=== PATIENT | male | born 1940 | race Caucasian/White ===

== ENCOUNTER 2023-07-10 14:49 | Inpatient (IN) | payer MEDICARE, OTHER, SELFPAY ==
[2023-07-10 15:30] VITALS: BP 167/74; PULSE 74; RESP 16; TEMP 36.1; O2SAT 97; BMI 22.8
--- NOTE | 2023-07-10 15:35 | DI.CT.S_ITS ---
PROCEDURE: CT PEL WO CON INDICATIONS: fall 06/21 unable to walk due to pain TECHNIQUE: Noncontrast 3 mm axial sections acquired through the bony pelvis, with coronal and sagittal reformatting. COMPARISON: [facility] ([facility]), CR, XR HIP W PEL IF DONE LT 2V, 06/27/2023, 15:03. FINDINGS: Image quality: Excellent. Bones: Fracture is seen involving subcapital region of left femoral neck with anterior angulation and displacement at fracture site. Slight superior migration of left femoral neck in relation to femoral head is also seen. No other fracture or dislocation is noted. Moderate bilateral hip joint osteoarthritic changes are seen. No evidence of avascular necrosis of femoral head. 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 Soft tissues: There is mild soft tissue swelling surrounding left femoral neck fracture site. No significant joint effusion. No abnormal soft tissue calcifications. No abnormal bowel wall thickening. Bladder wall thickness is normal. No pelvic free fluid or free air. IMPRESSION: 1. Subacute appearing slightly displaced fracture involving subcapital region of left femoral neck as described above. No other fracture or dislocation. 2. Moderate bilateral hip joint osteoarthritis. No evidence of avascular necrosis of femoral head. 3. Mild soft tissue swelling surrounding left femoral neck fracture site. No pelvic free fluid or free air. No soft tissue mass or drainable fluid collection. Dictated by: Kwaku Marie M.D. on 07/10/2023 at 16:23 Approved by: Kwaku Marie M.D. on 07/10/2023 at 16:26
--- NOTE | 2023-07-10 15:35 | DI.RAD.S_ITS ---
PROCEDURE: XR FEMUR LT MIN 2V INDICATIONS: fall 06/21 unable to walk due to pain TECHNIQUE: 4 views of the femur were acquired. COMPARISON: [facility] ([facility]), CR, XR HIP W PEL IF DONE LT 2V, 06/27/2023, 15:03. FINDINGS: Bones: There is suggestion of a minimally displaced fracture through subcapital region of left femoral neck. No other fracture or dislocation is seen. Left hip and left knee joint osteoarthritic changes are noted. No evidence of avascular necrosis of femoral head. No suspicious bony lesions. Soft tissues: No suspicious soft tissue calcifications or masses. IMPRESSION: Finding is suggestive of a minimally displaced left femoral neck fracture as above. Dictated by: Kwaku Marie M.D. on 07/10/2023 at 16:09 Approved by: Kwaku Marie M.D. on 07/10/2023 at 16:14
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
[2023-07-10 16:34] LABS: Add Manual Diff / Slide Review NO; Basophils Absolute Auto 0 /uL (0-100); Basophils Percent Auto 0.2 % (0-2); Eosinophils Absolute Auto 0 /uL (0-450); Eosinophils Percent Auto 0.6 % (2-4); Hematocrit 37.9 % (41-53); Hemoglobin 12.7 g/dL (13.5-17.5); Lymphocytes Absolute Auto 1500 /uL (1100-4500); Lymphocytes Percent Auto 17.7 % (25-40); Mean Corpuscular HGB Conc 33.6 % (30-36); Mean Corpuscular Hemoglobin 29.8 PG (26-34); Mean Corpuscular Volume 88.7 fL (80-100); Monocytes Absolute Auto 800 /uL (0-900); Monocytes Percent Auto 9.6 % (3-14); Neutrophils Absolute Auto 6000 /uL (1500-7000); Neutrophils Percent Auto 71.9 % (50-75); Platelet Count 219 X10^3/uL (150-400); Red Blood Cell Count 4.27 X10^6/uL (4.5-5.9); Red Cell Distribution Width 13.7 % (11.6-14.8); White Blood Cell Count 8.3 X10^3/uL (4.5-11.0)
[2023-07-10] MEDS: MORPHINE 4 MG/ML INJ IV (16:41)
[2023-07-10 16:42] VITALS: PULSE 62
[2023-07-10 16:46] VITALS: PULSE 78; O2SAT 97
[2023-07-10 16:55] LABS: BUN Creatinine Ratio 23.2 (6-22); Blood Urea Nitrogen 16 mg/dL (9-20); Calcium 9.1 mg/dL (8.4-10.2); Carbon Dioxide 25 mmol/L (22-32); Chloride 104 mmol/L (98-107); Estimated Glomerular Filt Rate > 60 mL/min (>60); Glucose 103 mg/dL (80-110); HEMOLYSIS < 15 (0-50); Potassium 3.4 mmol/L (3.4-5.1); Sodium 135 mmol/L (137-145)
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
[2023-07-10 17:26] VITALS: BP 155/77; PULSE 77; RESP 16; TEMP 37.2; O2SAT 98; BMI 22.8
[2023-07-10] MEDS: DEXTROSE 5%-0.9% NS 1,000 ML 100 ML IV (19:00)
[2023-07-10] MEDS: DOCUSATE 100 MG CAPSULE PO (20:30)
[2023-07-10] MEDS: HEPARIN 5,000 UNIT/ML VIAL 5000 UNIT SUBCUT (20:30)
[2023-07-10] MEDS: OXYCODONE IR 5 MG TABLET PO (20:30)
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
[2023-07-11 00:08] VITALS: BP 134/62; PULSE 74; RESP 17; TEMP 37.2; O2SAT 96
[2023-07-11] MEDS: ACETAMINOPHEN 325 MG TABLET 650 MG PO ×3 (00:14→18:14)
[2023-07-11] MEDS: OXYCODONE IR 5 MG TABLET PO ×4 (00:14→22:14)
[2023-07-11 04:52] LABS: Add Manual Diff / Slide Review NO; Basophils Absolute Auto 0 /uL (0-100); Basophils Percent Auto 0.4 % (0-2); Eosinophils Absolute Auto 100 /uL (0-450); Eosinophils Percent Auto 1.9 % (2-4); Hematocrit 34.9 % (41-53); Hemoglobin 11.9 g/dL (13.5-17.5); Lymphocytes Absolute Auto 1900 /uL (1100-4500); Lymphocytes Percent Auto 26.8 % (25-40); Mean Corpuscular HGB Conc 34.2 % (30-36); Mean Corpuscular Hemoglobin 30.1 PG (26-34); Mean Corpuscular Volume 88.1 fL (80-100); Monocytes Absolute Auto 800 /uL (0-900); Monocytes Percent Auto 11.3 % (3-14); Neutrophils Absolute Auto 4100 /uL (1500-7000); Neutrophils Percent Auto 59.6 % (50-75); Platelet Count 204 X10^3/uL (150-400); Red Blood Cell Count 3.96 X10^6/uL (4.5-5.9); Red Cell Distribution Width 13.9 % (11.6-14.8); White Blood Cell Count 6.9 X10^3/uL (4.5-11.0)
[2023-07-11 05:03] LABS: BUN Creatinine Ratio 23.9 (6-22); Blood Urea Nitrogen 16 mg/dL (9-20); Calcium 8.3 mg/dL (8.4-10.2); Carbon Dioxide 25 mmol/L (22-32); Chloride 106 mmol/L (98-107); Estimated Glomerular Filt Rate > 60 mL/min (>60); Glucose 115 mg/dL (80-110); HEMOLYSIS < 15 (0-50); Potassium 3.4 mmol/L (3.4-5.1); Sodium 136 mmol/L (137-145)
[2023-07-11] MEDS: DEXTROSE 5%-0.9% NS 1,000 ML 100 ML IV (05:14)
[2023-07-11 08:00] VITALS: BP 145/66; PULSE 82; RESP 17; TEMP 36.6; O2SAT 97
[2023-07-11] MEDS: HEPARIN 5,000 UNIT/ML VIAL 5000 UNIT SUBCUT ×2 (09:44→21:07)
[2023-07-11] MEDS: DOCUSATE 100 MG CAPSULE PO ×2 (09:44→21:08)
--- NOTE | 2023-07-11 11:00 | PM.PN.1 ---
Subjective Subjective Interval history: Doing well overnight. Minimal pain, and denies dyspnea. No nausea. Plan is for a JANET on afternoon 07/12/2023. Exam Vital Signs (past 8 hours): Oxygen Delivery Method Room Air Oxygen Flow Rate 0 Narrative Exam Narrative: NAD, normal speech and calm. Atraumatic head, EOMI. Neck supple and midline trachea. Lungs CTA, normal rate and effort. Heart RRR, without murmur, gallop, or rub. Abdomen Soft, NT, ND No leg edema. No skin rash. Objective Labs 07/11/23 04:10 07/11/23 04:10 Labs: Laboratory Results - last 24 hr 07/10/23 07/10/23 07/11/23 16:25 16:25 04:10 WBC 8.3 6.9 RBC 4.27 L 3.96 L Hgb 12.7 L 11.9 L Hct 37.9 L 34.9 L MCV 88.7 88.1 MCH 29.8 30.1 MCHC 33.6 34.2 RDW 13.7 13.9 Plt Count 219 204 Neut % (Auto) 71.9 59.6 Lymph % (Auto) 17.7 L 26.8 [place] % (Auto) 9.6 11.3 Eos % (Auto) 0.6 L 1.9 L Baso % (Auto) 0.2 0.4 Neut # (Auto) 6000 4100 Lymph # (Auto) 1500 1900 [place] # (Auto) 800 800 Eos # (Auto) 0 100 Baso # (Auto) 0 0 Sodium 135 L Potassium 3.4 Chloride 104 Carbon Dioxide 25 BUN 16 Creatinine 0.69 Estimated GFR > 60 BUN/Creatinine Ratio 23.2 H Glucose 103 Calcium 9.1 07/11/23 04:10 WBC RBC Hgb Hct MCV MCH MCHC RDW Plt Count Neut % (Auto) Lymph % (Auto) [place] % (Auto) Eos % (Auto) Baso % (Auto) Neut # (Auto) Lymph # (Auto) [place] # (Auto) Eos # (Auto) Baso # (Auto) Sodium 136 L Potassium 3.4 Chloride 106 Carbon Dioxide 25 BUN 16 Creatinine 0.67 Estimated GFR > 60 BUN/Creatinine Ratio 23.9 H Glucose 115 H Calcium 8.3 L PFSH Social History household members: spouse Smoking Status: Never smoker alcohol intake: current Assessment & Plan Assessment & Plan narrative: 1. Subacute left femoral neck fracture, POA and active. -NPO midnight tonight, ortho consult, and pain control. -JANET 07/11/2023 2. Hyponatremia, POA and improving. -IVF (NS) and follow. DVT prophylaxis , heparin SQ Time Spent With Patient Time with patient: 30 to 49 minutes with 50% spent counseling/coordinating care Quality VTE Deep Vein Thrombosis/Pulmonary Embolism Present on Admission: No
[2023-07-11] MEDS: POTASSIUM CHLORIDE 20 MEQ TAB 40 MEQ PO (11:21)
--- NOTE | 2023-07-11 15:37 | CM.DANOTE ---
DCP Assessment Note: Patient is an 82yo M here after a fall a few weeks ago that has since only increased in pain and decreased in mobility. PCP Magdaleno Hinton [employer] and [place] LICENSED ARCHITECT reviewed EMR. Per chart review, surgery scheduled for tomorrow afternoon for his hip. LICENSED ARCHITECT entered room and introduced self and role. patient resting in bed and appeared A/Ox4. Patient reports living in home with spouse Frida ([phone]) on [place]. Patient normally IADLs/drives at baseline. No DME but has hiking poles. Patient reports 4 small steps to get into his house. No caregiver but has a housekeeper manager come in once per month. Plan to transport home is POV with , interested in boarding pass. Patient at this time is uninterested in SNF/HH, but, is willing to keep an open mind to it following how he is feeling post op. Plan: pending post op needs. Plan 1) home with spouse when stable in POV. 2) HH pending PT eval. CM team will continue to follow closely. NIHARIKA Dumont Discharge Planning/Care Management CM Discharge Assessment Start: 07/11/23 15:34 Freq: Status: Active Protocol: Document 07/11/23 15:36 (Rec: 07/11/23 15:37 [id number]) Discharge Planning Assessment Assigned It Trainer NIHARIKA Yang DPOA/Assigned Designee Name Frida (spouse) Contact Information [phone] Advance Directives? No History Provided By Patient,Medical Record Prior Living Arrangements House Household Members spouse Type of transporation used prior to Drives own vehicle admit Independent with ADL's Yes Is patient alert and oriented? Yes Comment pending post OP needs Discharge Plan Home Transportation Arrangement in POV Whiteboard Updated in Patient Room with Yes name and ext. # of It Trainer Review Status In Process Next Review Type Continued Stay Review
[2023-07-11 16:00] VITALS: BP 142/60; PULSE 80; RESP 16; TEMP 37; O2SAT 95
[2023-07-11] MEDS: LACTATED RINGERS 1,000 ML 42 ML IV (16:08)
[2023-07-11 23:16] VITALS: BP 154/62; PULSE 77; RESP 16; TEMP 37.5; O2SAT 95
[2023-07-12] VITALS (11 sets, daily range): BP systolic 104–150; BP diastolic 53–81; PULSE 74–96; RESP 12–20; TEMP 36.6–37.3; O2SAT 92–97; BMI 22.8
--- NOTE | 2023-07-12 | DI.RAD.S_ITS ---
PROCEDURE: XR HIP W PEL IF DONE LT 2V INDICATIONS: ANTERIOR HIP TECHNIQUE: Multiple fluoroscopic views of the left hip are obtained COMPARISON: [facility] ([email or web address], XR HIP W PEL IF DONE LT 2V, 06/27/2023, 15:03. FINDINGS: Fluoroscopic guidance utilized for a left total hip arthroplasty. The components appear well aligned. IMPRESSION: Fluoroscopic guidance. Dictated by: Elmer Porras M.D. on 07/12/2023 at 16:19 Approved by: Elmer Porras M.D. on 07/12/2023 at 16:20
[2023-07-12 05:00] LABS: HEMOLYSIS < 15 (0-50); Potassium 3.6 mmol/L (3.4-5.1)
[2023-07-12] MEDS: OXYCODONE IR 5 MG TABLET PO (06:26)
[2023-07-12] MEDS: ACETAMINOPHEN 325 MG TABLET 650 MG PO ×2 (06:26→21:14)
[2023-07-12] MEDS: CEFAZOLIN 2 GM/100 ML PREMIX 100 ML IV ×3 (09:09→22:08)
[2023-07-12] MEDS: LACTATED RINGERS 1,000 ML 42 ML IV ×2 (09:09→12:39)
--- NOTE | 2023-07-12 10:31 | PM.PN.1 ---
Subjective Subjective Interval history: No problems over night. Minimal pain. No chest pain or dyspnea. Surgery today around 13:00. Exam Vital Signs (past 8 hours): - 07/12/23 07:00 Temperature 98.3 F Pulse Rate 74 Respiratory Rate 18 Blood Pressure 139/61 Pulse Oximetry 96 Oxygen Flow Rate 0 Oxygen Delivery Method Room Air Oxygen Flow Rate 0 Narrative Exam Narrative: NAD, normal speech and calm. Atraumatic head, EOMI. Neck supple and midline trachea. Lungs CTA, normal rate and effort. Heart RRR, without murmur, gallop, or rub. Abdomen Soft, NT, ND No leg edema. No skin rash. Objective Labs 07/11/23 04:10 07/12/23 04:30 Labs: Laboratory Results - last 24 hr 07/12/23 04:30 Potassium 3.6 PFSH Social History household members: spouse Smoking Status: Never smoker alcohol intake: current Assessment & Plan Assessment & Plan narrative: 1. Subacute left femoral neck fracture, POA and active. -NPO -JANET 07/12/2023, 13:00 2. Hyponatremia, POA and improving. -IVF (NS) and follow. PLAN: -PT assess and discharge planning after (lives with on [facility]). DVT prophylaxis , heparin SQ Time Spent With Patient Time with patient: 30 to 49 minutes with 50% spent counseling/coordinating care Quality VTE Deep Vein Thrombosis/Pulmonary Embolism Present on Admission: No
[2023-07-12] MEDS: HYDROMORPHONE 0.5 MG INJ IV (10:32)
--- NOTE | 2023-07-12 11:38 | PM.PREOP ---
Pre-operative Note Interval Note History & Physical reviewed/Exam performed by Physician: Yes Changes to H&P: No
[2023-07-12] MEDS: TRANEXAMIC ACID 1,000 MG VIAL 2000 MG INJ ×2 (13:49→15:00)
--- NOTE | 2023-07-12 14:16 | SUR.OPER ---
Patient supine on padded [place] table, bilateral arms on padded arm board with foam padding and secured at <90, Bilateral feet have hospital supplied socks on, toes on socks cut for circulation check, then both wrapped in coban and placed into padded traction boots, additional coban wrapped on top of boot to lower leg and positioned per surgeon, padded post at patient's groin, pressure points checked and padded.
[2023-07-12] MEDS: ROPIVACAINE/EPI/CLONIDINE/KET 50 ML SYRINGE INJ (15:12)
[2023-07-12] MEDS: EPINEPHrine 1 MG/ML IRR (15:20)
--- NOTE | 2023-07-12 16:28 | CM.DPC ---
DCP Continued: Patient went to surgery today to repair hip. PT/OT to work with patient in the morning. PEANUT ROASTER unable to speak with patient today due to patient being in surgery. Plan: pending PT/OT evals in morning. Patient preference yesterday was home with spouse support on [place]. Will need [facility] priority boarding pass at discharge. Continue to follow closely. NIHARIKA Dumont
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
--- NOTE | 2023-07-12 16:40 | DI.RAD.S_ITS ---
PROCEDURE: XR HIP W PEL IF DONE LT 2V INDICATIONS: postop TECHNIQUE: AP pelvis and lateral view of the left hip acquired. COMPARISON: [facility], CR, XR FEMUR LT MIN 2V, 07/10/2023, 15:40. [facility] ([place]), CR, XR HIP W PEL IF DONE LT 2V, 06/27/2023, 15:03. [facility], CT, CT PEL WO CON, 07/10/2023, 15:44. [facility], CR, XR HIP W PEL IF DONE LT 2V, 07/12/2023, 14:36. FINDINGS: Bones: Patient is status post left hip arthroplasty, with hardware components in expected positions. The hip joint appears congruent. The visualized bony structures appear intact. Moderate right hip joint degeneration. Soft tissues: Overlying postoperative changes are noted. No suspicious soft tissue densities. IMPRESSION: Left hip arthroplasty with prosthesis in anatomic alignment. Dictated by: Williams Henriquez M.D. on 07/12/2023 at 16:58 Approved by: Williams Henriquez M.D. on 07/12/2023 at 16:59
--- NOTE | 2023-07-12 17:13 | SUR.PHASEI ---
Pt transferred to floor by Ryanne Meza. SBAR report called to Paco MEZA. Pt PACU orders discontinued per protocol. No meds given. Pt denied pain.
[2023-07-12] MEDS: ASPIRIN EC 81 MG TABLET PO (21:14)
[2023-07-12] MEDS: HEPARIN 5,000 UNIT/ML VIAL 5000 UNIT SUBCUT (21:15)
[2023-07-12] MEDS: DOCUSATE 100 MG CAPSULE PO (21:15)
[2023-07-13 02:09] VITALS: BP 114/64; PULSE 85; RESP 17; TEMP 37.2; O2SAT 96
[2023-07-13 04:51] LABS: Hematocrit 27.4 % (41-53); Hemoglobin 9.5 g/dL (13.5-17.5)
--- NOTE | 2023-07-13 06:12 | PM.PNPO.1 ---
Subjective Subjective Date Patient Seen: 07/13/23 Time Patient Seen: 07:33 Interval history: Pt resting comfortably in bed, denies pain. Has not yet worked w/ PT. Exam Vital Signs (past 8 hours): - 07/12/23 22:29 07/13/23 02:09 Temperature 98.5 F 99 F Pulse Rate 96 H 85 Respiratory Rate 20 17 Blood Pressure 104/65 114/64 Pulse Oximetry 96 96 Oxygen Flow Rate 0 Oxygen Delivery Method Room Air Oxygen Flow Rate 0 Narrative Exam Narrative: 4/5 strength in left hip flexors, quadriceps, hamstrings; 5/5 DF, PF, EHL. Sensation to light touch intact throughout LLE. Calf soft, compressible, nontender. Aquacel dressing CDI. Objective Labs 07/13/23 04:04 07/12/23 04:30 Labs: Laboratory Results - last 24 hr 07/13/23 04:04 Hgb 9.5 L Hct 27.4 L PFSH Social History household members: spouse Smoking Status: Never smoker alcohol intake: current Assessment & Plan Post-op Assessment and plan (1) S/P total hip arthroplasty: Assessment and Plan narrative: He will be weight-bearing as tolerated on left.? Aspirin 81 mg twice per day for VTE prophylaxis.? He should receive a multimodal pain protocol incorporating NSAIDs, acetaminophen, cryotherapy, and oral opioids prior to any IV opioids.? Discharge disposition per hospitalist service.? Follow-up in orthopedic clinic for a wound check at 2 weeks postoperatively; appt scheduled.? A low AP pelvis and cross-table lateral should be obtained at that visit. Postoperative Procedures: Procedures Operation Date: 07/12/23 13:00 Actual Procedure Side Surgeon p Total Hip Arthroplasty/Anterior Approach Left Benito Mabry MD Postoperative day: 1 Quality VTE Deep Vein Thrombosis/Pulmonary Embolism Present on Admission: No
[2023-07-13] MEDS: CEFAZOLIN 2 GM/100 ML PREMIX 100 ML IV (06:40)
[2023-07-13 08:00] VITALS: BP 120/54; PULSE 87; RESP 18; TEMP 37.1; O2SAT 95
--- NOTE | 2023-07-13 08:18 | P.PN_ITS ---
Subjective Subjective Interval history: Seen this AM. Has not yet gotten out of bed. Pain well controlled. No new issues overnight Exam Vital Signs (past 8 hours): - 07/13/23 02:09 07/13/23 08:00 Temperature 99 F 98.8 F Pulse Rate 85 87 Respiratory Rate 17 18 Blood Pressure 114/64 120/54 L Pulse Oximetry 96 95 Oxygen Flow Rate 0 Oxygen Delivery Method Room Air Oxygen Flow Rate 0 Narrative Exam Narrative: RLE: Aquacel dressing CDI. Flexes/extends toes. Tolerates hip flexion without any pain. Palpable DP pulse Objective Imaging Postop Xray: My impression: JANET in place with appropriate positioning Labs 07/13/23 04:04 07/12/23 04:30 Labs: Laboratory Results - last 24 hr 07/13/23 04:04 Hgb 9.5 L Hct 27.4 L PFSH Social History household members: spouse Smoking Status: Never smoker alcohol intake: current Assessment & Plan Assessment and plan (1) S/P total hip arthroplasty: Status: Acute Plan Status post JANET 07/12 for femoral neck fracture - Work with PT today. Anticipate rapid mobilization given minimal pain and high pre-injury function - Please transition into normal clothing. Please replace socks with new hospital socks as I cut the toes off of the socks during surgery - ASA 81 BID for DVT PPX - Discharge home. Typically expect mobilization to limit discharge home follow ing surgery for femoral neck fracture but would not be surprised if he is able to mobilize well enough to go home today - Pain has been very minimal. Should not receive any opioids unless in severe pa in. Please maintain ice on the effected hip and maximize non-opioid pharmacologic pain interventions such as acetaminophen and NSAIDs - Detailed DC instructions given to patient's in surgical booklet, including time and location of followup visits with me Quality VTE Deep Vein Thrombosis/Pulmonary Embolism Present on Admission: No
[2023-07-13] MEDS: ACETAMINOPHEN 325 MG TABLET 650 MG PO (09:24)
[2023-07-13] MEDS: DOCUSATE 100 MG CAPSULE PO ×2 (09:25→21:21)
[2023-07-13] MEDS: ASPIRIN EC 81 MG TABLET PO ×2 (09:25→21:21)
[2023-07-13] MEDS: HEPARIN 5,000 UNIT/ML VIAL 5000 UNIT SUBCUT ×2 (09:25→21:21)
--- NOTE | 2023-07-13 10:20 | PT.IIE ---
Current Diagnoses Fracture of unspecified part of neck of unspecified femur, initial encounter for closed fracture (07/10/23) Presence of unspecified artificial hip joint (07/10/23) Surgery Performed Operation Date: 07/12/23 13:00 Actual Procedures p Total Hip Arthroplasty/Anterior Approach(Left) - Benito Mabry MD Physical Therapy Inpatient Evaluation/Re-Eval M1 PT/OT-IP Prior Functional Status Start: 07/13/23 13:10 Freq: NEEDED Status: Active Protocol: Document 07/13/23 13:10 AB (Rec: 07/13/23 13:34 AB [id number]) Medical Review Prior Functional Status Medical History Reviewed Yes Communication Pt is able to communicate all needs Mobility and Gait Independent Activities of Daily Living and IADL's Independent with all ADLs and IADLs Prior Functional Level (Other details) High PLOF: pt's hobbies include hiking and cycling Social History Household Members spouse Living Arrangements House Number of Floors (Floors) Two Floors Number of Stairs To Enter/Railing? 4 NANCY Home Environment High Toilet,Walk in Shower, Bidet Home Equipment Grab Bars In Shower Additional Social History Comment Pt lives with spouse who can assist 08/05 if needed. Pt and spouse report they have a 12' gravel ramp followed by 4' even ground to get to front steps. Their bedroom is on the second floor (spiral staircase with large steps, 1 hand rail and pole), but he can take care of all needs on the first floor. M2 PT-IP Current Condition Start: 07/13/23 13:10 Freq: NEEDED Status: Active Protocol: Document 07/13/23 13:10 AB (Rec: 07/13/23 13:34 AB [id number]) Physical Therapy Current Condition Current Condition Evaluation Date 07/13/23 Treatment Diagnosis s/p left anterior JANET Onset Date 07/12/23 M3 PT-IP Subjective Start: 07/13/23 13:10 Freq: NEEDED Status: Active Protocol: Document 07/13/23 13:10 AB (Rec: 07/13/23 13:34 AB [id number]) Subjective Physical Therapy Visit Type Type Initial Evaluation Visit Start Time 10:20 Visit Stop Time 11:23 Total Visit Minutes 63 Physical Therapy Visit Comments Patient Comments Pt presents semi supine in bed with spouse at bedside. He is agreeable to PT eval this morning. Therapy Pain Assessment Pain When Pain Assessed At Rest Pain Present Pain Present Denied Pain M4 PT-IP Mobility and Gait Start: 07/13/23 13:10 Freq: NEEDED Status: Active Protocol: Document 07/13/23 13:10 AB (Rec: 07/13/23 13:34 AB [id number]) PT-Bed Mobility Assessment Rolling Type of Rolling Roll to Left Level of Assist Standby Assistance Supine to Sit Supine to Sit Minimal Assistance,1 Person Assistance Sit to Supine Sit to Supine Standby Assistance Scooting Scooting to Edge of Bed Standby Assistance Scooting Up and Down in Bed Standby Assistance PT-Transfer Assessment Sit to and From Stand Sit to and from Stand Contact Guard Assistance,1 Person Assistance,Use of Upper Extremities Equipment Transfer Assistive Device Gait Belt,Front Wheeled Walker Transfers Transfer Destination Bed Transfer Technique Stand Step Pivot Transfer Ability Level of Assist Contact Guard Assistance,1 Person Assistance,Use of Upper Extremities Comments Mobility Comments Pt's BP in supine is 112/55 mmHg, and increases to 119/55 upon sitting, wihtout complaints of dizziness or lightheadedness. However, pt has difficulty performing STS without bracing his legs against bed when standing. Upon standing BP remains unchanged and pt denies symptoms. Pt ambulated 10ft around his bed, and complains of lightheadedness. BP was re- assessed and dropped to 92/38. Pt returned to bed into supine position, and BP improved to 125/58 with reports of resolved symptoms. No further mobility was performed. At end of session, pt is in semi supine position in bed with all needs met, call light within reach, bed alarm activated, and spouse at bedside. RN was notified of findings. Gait Assessment Gait Gait Assistance Required: Contact Guard Assist,1 Person Assist Distance (Feet) 10 Assistive Devices Assistive Device Gait Belt,Front Wheeled Walker Gait Deviations General Gait Pattern Antalgic,Decreased Stride Length,Decreased Feet Clearance,Flexed Trunk Factors Limiting Gait Function Factors Limiting Gait Function Decreased Activity Tolerance, Decreased Strength,Limited Range of Motion Stair Climbing Assessment Comments Stair Climbing Comments Not assessed due to symptoms. PT-Balance Assessment Sitting Balance and Reactions Static Sitting Balance Ability Normal Dynamic Sitting Balance Ability Good Standing Balance and Reactions Static Standing Balance Ability Fair Dynamic Standing Balance Ability Poor Device Used FWW M5 PT-IP Objective Assessments Start: 07/13/23 13:10 Freq: NEEDED Status: Active Protocol: Document 07/13/23 13:10 AB (Rec: 07/13/23 13:34 AB [id number]) Orientation Orientation/Cognition Level of Alertness Alert Orientation Name,Age,Birthday,Month,Date, Year,Day of Week,Place, Situation Language Function Ability No Deficits Noted Safety Awareness Understands Safety Issues Memory Description No Deficits Noted Gross Range of Motion Upper Extremity ROM Assessment Within Functional Limits Lower Extremity ROM Assessment Left Impaired Strength Upper Extremity Strength Assessment Within Functional Limits Lower Extremity Strength Assessment Left Impaired M6 PT-IP Treatment Start: 07/13/23 13:10 Freq: NEEDED Status: Active Protocol: Document 07/13/23 13:10 AB (Rec: 07/13/23 13:34 AB [id number]) Physical Therapy Treatment Education Education Provided Precautions,Weight Bearing Status,Post-Op Packet,Safety Brace Education Patient,Caregiver M7 PT-IP Assessment and Plan Start: 07/13/23 13:10 Freq: NEEDED Status: Active Protocol: Document 07/13/23 13:10 AB (Rec: 07/13/23 13:34 AB [id number]) PT Summary Assessment and Plan Potential Rehabilitation Potential Good Status of Condition at Evaluation Stable Summary Impairments Pain,ROM,Strength,Balance,Bed Mobility,Transfers,Gait, Activity Tolerance Goals Bed Mobility Goal Independent Transfer Goal Independent,Front Wheeled Walker Gait Goal Standby Assistance,Front Wheel Walker Gait Distance 100 Other Goals Pt to ambulated 100ft independently with LRAD to show improving ability to perform functional mobility. Pt to be able to ascend/ descend 4 steps with 1 hand rail in order to discharge to home safely. Days to Meet Goals 5 Frequency of Treatment Frequency Of Treatment Twice a Day Treatment Plan Physical Therapy Treatment Plan Bed Mobility Training,Transfer Training,Gait Training, Therapeutic Exercise,Balance Retraining,Post Op Education, Discharge Planning,Hot or Cold Pack,Neuromuscular Re-ed, Coordination Retraining,Manual Therapy Other Recommendations and Next Treatment Jacob Mak is an 82 year Focus old male patient who is s/p left anterior JANET performed on 07/12/23 secondary to a fall(s ) which caused a hip fx. Today 's PT evaluation revealed deficits consistent with this surgical procedure including ROM deficits, muscular weakness and gait abnormalities. These deficits are limiting the pt's ability to perform functional mobility , as he requires Chandan to SBA for bed mobility, and CGA with FWW for STS, transfers and ambulation. The pt is able to ambulate 10ft before becoming symptomatic with BP revealing orthostatic hypotension as detailed above. Based on these findings, PT recommends discharge to home with assistance and referral to outpatient PT to improve his deficits. The pt would benefit from continued skilled PT to improve to his highest level of function. Precautions Anterior Hip Precautions No Hip Extension,No Hip External Rotation Weight Bearing Status Weight Bearing Status Weight Bear as Tolerated Recommendations To Nursing Amount of Assist Needed 1 Person Assist Discharge Recommendations PT Discharge Recommendations Home with Assistance, Outpatient PT Equipment Needed for Home Before FWW- pt's requested FWW Discharge from hospital Transportation Needs at Discharge Private Vehicle
--- NOTE | 2023-07-13 10:46 | PC.NURSE ---
Addendum entered by Macarena Hudson R.N. 07/13/23 14:20: Patient given 5mg of oxycodone and helpful. He is resting comfortably. Original Note: Patients l.anterior hip is cdi with aquacel in place. He is working with physical therapy now. S.O. is in room with patient. He lives on [facility] and they would like to be discharged before it gets too dark later. Patient will need a walker, and this has been passed on to the physical therapist.
[2023-07-13 12:00] VITALS: BP 115/48; PULSE 91; RESP 18; TEMP 36.8; O2SAT 96
[2023-07-13] MEDS: OXYCODONE IR 5 MG TABLET PO ×2 (13:36→19:37)
--- NOTE | 2023-07-13 16:40 | PT.IPTN ---
Addendum entered and electronically signed by Arron Sandoval PT 07/13/23 18:02: Caregiver training will tentatively take place tomorrow morning (07/14) at 11:00 AM. PT confirmed with pt and pt's spouse. Original Note: Current Diagnoses Fracture of unspecified part of neck of unspecified femur, initial encounter for closed fracture (07/10/23) Presence of unspecified artificial hip joint (07/10/23) Surgery Performed Operation Date: 07/12/23 13:00 Actual Procedures p Total Hip Arthroplasty/Anterior Approach(Left) - Benito Mabry MD Physical Therapy Treatment Note M2 PT-IP Current Condition Start: 07/13/23 13:10 Freq: NEEDED Status: Active Protocol: Document 07/13/23 13:10 AB (Rec: 07/13/23 13:34 AB [id number]) Physical Therapy Current Condition Current Condition Evaluation Date 07/13/23 Treatment Diagnosis s/p left anterior JANET Onset Date 07/12/23 M3 PT-IP Subjective Start: 07/13/23 13:10 Freq: NEEDED Status: Active Protocol: Document 07/13/23 17:36 AB (Rec: 07/13/23 17:58 AB [id number]) Subjective Physical Therapy Visit Type Type Treatment Note Visit Start Time 16:40 Visit Stop Time 17:12 Total Visit Minutes 32 Physical Therapy Visit Comments Patient Comments Pt presents seated at EOB with OT in room performing OT eval . Pt is agreeable to PT this afternoon. Therapy Pain Assessment Pain When Pain Assessed At Rest Pain Present Pain Present Denied Pain M4 PT-IP Mobility and Gait Start: 07/13/23 13:10 Freq: NEEDED Status: Active Protocol: Document 07/13/23 17:36 AB (Rec: 07/13/23 17:58 AB [id number]) PT-Bed Mobility Assessment Sit to Supine Sit to Supine Standby Assistance PT-Transfer Assessment Sit to and From Stand Sit to and from Stand Standby Assistance,Use of Upper Extremities Equipment Transfer Assistive Device Gait Belt,Front Wheeled Walker Transfers Transfer Destination Bed,Wheelchair Transfer Technique Stand Step Pivot Transfer Ability Level of Assist Standby Assistance,Use of Upper Extremities Comments Mobility Comments Pt continues to use back of legs againts bed/chair when performing STS due to weakness and instability. He shows good recall of proper hand placement when performing STS. OT reports pt's vital signs were stable when performing mobility prior to PT arrival. Gait Assessment Gait Gait Assistance Required: Standby Assistance Assistive Devices Assistive Device Gait Belt,Front Wheeled Walker Gait Deviations General Gait Pattern Antalgic,Decreased Stride Length,Decreased Feet Clearance,Step-to Gait Factors Limiting Gait Function Factors Limiting Gait Function Decreased Activity Tolerance, Decreased Strength,Limited Range of Motion Comments Gait Comments Pt ambulated 20ft with FWW and SBA, demonstrating step to gait pattern to maintain anterior hip precautions. However, he requires occasional verbal cues to avoid left hip extension and to push FWW rather than lift it as he is ambulating. Pt denied pain when ambulating, but reported dizziness/ lightheadedness and feeling like he needs to sit and rest. The pt's BP dropped to 99/48 mmHg. Pt then returned to room in w/c being propelled by PT. The pt then transferred from w/c to bed with FWW with SBA. Pt's BP improved to 111/50 in supine and then to 120/52 after a few minutes in supine position. Further mobility was not performed due to symptoms . At end of session, the pt was left with all needs met and call light within reach. Pt was provided with FWW, per pt and pt's spouse request. Stair Climbing Assessment Comments Stair Climbing Comments NT due to symptoms. PT-Balance Assessment Sitting Balance and Reactions Static Sitting Balance Ability Normal Dynamic Sitting Balance Ability Good Standing Balance and Reactions Static Standing Balance Ability Fair Dynamic Standing Balance Ability Fair Device Used FWW M5 PT-IP Objective Assessments Start: 07/13/23 13:10 Freq: NEEDED Status: Active Protocol: Document 07/13/23 13:10 AB (Rec: 07/13/23 13:34 AB [id number]) Orientation Orientation/Cognition Level of Alertness Alert Orientation Name,Age,Birthday,Month,Date, Year,Day of Week,Place, Situation Language Function Ability No Deficits Noted Safety Awareness Understands Safety Issues Memory Description No Deficits Noted Gross Range of Motion Upper Extremity ROM Assessment Within Functional Limits Lower Extremity ROM Assessment Left Impaired Strength Upper Extremity Strength Assessment Within Functional Limits Lower Extremity Strength Assessment Left Impaired M6 PT-IP Treatment Start: 07/13/23 13:10 Freq: NEEDED Status: Active Protocol: Document 07/13/23 17:36 AB (Rec: 07/13/23 17:58 AB [id number]) Physical Therapy Treatment Education Education Provided Safety Brace Education Patient Equipment Issued Equipment Type and Company FWW ([email or web address]) M7 PT-IP Assessment and Plan Start: 07/13/23 13:10 Freq: NEEDED Status: Active Protocol: Document 07/13/23 17:36 AB (Rec: 07/13/23 17:58 AB [id number]) PT Summary Assessment and Plan Potential Rehabilitation Potential Good Status of Condition at Evaluation Evolving Summary Impairments Pain,ROM,Strength,Balance,Bed Mobility,Transfers,Gait, Activity Tolerance Progress Towards Goals Progressing Toward Goals Assessment Summary The pt is making progress towards his goals, as he is able to ambulate 20ft with FWW with min verbal cues. However , the pt continues with orthostatic hypotension with increased activity, though he was able to tolerate more activity this session than during PT eval this morning. He is able to perform sit<> supine, STS and transfers with SBA and FWW, however continues to use the back of his LEs to brace himself. Therefore he would benefit from additional education and practice to improve his biomechanics and balance, as well as gait and stairs training. Based on his current level of function, PT continues to recommend and anticipate discharge to home. Home health PT may be required instead of outpatient PT based on his progress with therapy. The pt has been issued a FWW per pt and pt's spouse's request. PT will provide administrator health care facility training tomorrow at 9:30AM, focusing on practice ascending/ descending stairs. Goals Bed Mobility Goal Independent Transfer Goal Independent,Front Wheeled Walker Gait Goal Standby Assistance,Front Wheel Walker Gait Distance 100 Other Goals Pt to ambulate 100ft independently with LRAD to show improving ability to perform functional mobility. Pt to be able to ascend/ descend 4-7 steps with 1 hand rail in order to discharge to home safely. Days to Meet Goals 5 Frequency of Treatment Frequency Of Treatment Twice a Day Treatment Plan Physical Therapy Treatment Plan Bed Mobility Training,Transfer Training,Gait Training, Therapeutic Exercise,Balance Retraining,Post Op Education, Discharge Planning,Hot or Cold Pack,Neuromuscular Re-ed, Coordination Retraining,Manual Therapy Other Recommendations and Next Treatment Increased gait distance and Focus stairs if able. Pt may require practice with SPC for stairs. Precautions Anterior Hip Precautions No Hip Extension,No Hip External Rotation Weight Bearing Status Weight Bearing Status Weight Bear as Tolerated Recommendations To Nursing Amount of Assist Needed Standby Assistance,1 Person Assist Discharge Recommendations PT Discharge Recommendations Home,Home Health,Outpatient PT Other Discharge Recommendations Discharge to vs outpatient PT based on progress. Transportation Needs at Discharge Private Vehicle
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
[2023-07-13 18:00] VITALS: BP 115/53; PULSE 95; RESP 18; TEMP 36.9; O2SAT 96
--- NOTE | 2023-07-13 18:05 | PM.PN.1 ---
Subjective Subjective Interval history: Patient orthostatic with PT today. Otherwise he feels good and no pain in hip. Exam Vital Signs (past 8 hours): - 07/13/23 12:00 Temperature 98.2 F Pulse Rate 91 H Respiratory Rate 18 Blood Pressure 115/48 L Pulse Oximetry 96 Oxygen Flow Rate 0 Oxygen Delivery Method Room Air Oxygen Flow Rate 0 Narrative Exam Narrative: NAD, normal speech and calm. Atraumatic head, EOMI. Neck supple and midline trachea. Lungs CTA, normal rate and effort. Heart RRR, without murmur, gallop, or rub. Abdomen Soft, NT, ND No leg edema. No skin rash. Objective Labs 07/13/23 04:04 07/12/23 04:30 Labs: Laboratory Results - last 24 hr 07/13/23 04:04 Hgb 9.5 L Hct 27.4 L PFSH Social History household members: spouse Smoking Status: Never smoker alcohol intake: current Assessment & Plan Assessment & Plan narrative: 1. Subacute left femoral neck fracture, POA and active. -s/p repair on 07/12 2. Hyponatremia, POA and improving. -IVF (NS) and follow. 3. Orthostatic hypotension -give NS bolus and recheck qshift PLAN: -PT eval ok with home (lives with on [facility]). DVT prophylaxis ASA BID Time Spent With Patient Time with patient: 30 to 49 minutes with 50% spent counseling/coordinating care Quality VTE Deep Vein Thrombosis/Pulmonary Embolism Present on Admission: No
[2023-07-13] MEDS: SODIUM CHLORIDE 0.9% 1,000 ML 1000 ML IV (18:52)
[2023-07-13 19:20] VITALS: BP 121/46; PULSE 87; RESP 20; TEMP 37.1; O2SAT 97
[2023-07-13] MEDS: HYDROMORPHONE 0.5 MG INJ IV (21:21)
[2023-07-13 23:44] VITALS: BP 127/53; PULSE 86; RESP 20; TEMP 36.8; O2SAT 95
[2023-07-14 05:34] VITALS: BP 136/60; PULSE 90; RESP 20; TEMP 36.5; O2SAT 96
[2023-07-14] MEDS: OXYCODONE IR 5 MG TABLET PO ×2 (06:05→10:14)
--- NOTE | 2023-07-14 06:51 | PM.DS.1 ---
History of Present Illness History of Present Illness Date Patient Seen: 07/14/23 Time Patient Seen: 06:51 Chief complaint: Thinks broken L femur Narrative: Operative Date/Time/Diagnoses Date of procedure: 07/12/23 Pre-op diagnosis: Left displaced femoral neck fracture Post-op diagnosis: same Procedure & Clinicians Procedure: Left total hip arthroplasty (59884) Same procedure as scheduled: Yes Surgeon: Benito Mabry Predatory Animal Hunter: Uriel Monahan Anesthesia Type: General and Local Operative Notes Findings: Displaced femoral neck fracture Specimen(s): none sent Prosthetic devices, grafts, tissues, transplants, or devices: Depuy Sodus 52 mm acetabular cup with 2 screws (40 mm & 15 mm). 36 neutral liner. 2 HO C stem. 36 + 5 ceramic head. Estimated Blood Loss (mL): 200 Blood products transfused: none Discharge Providers Provider Date of admission: 07/10/23 17:13 Discharge Date: 07/14/23 Primary care physician: Magdaleno Hinton MD Consults: 07/10/23 16:27 Consult to Orthopedic Surgery Stat Comment: Consulting Provider: Chikis Angel Reason for consultation: Femoral neck fracture Has provider been notified: Yes 07/10/23 18:14 Consult to Pastoral Services Routine Comment: Pt is open to in-house double end tenon operator visiting 07/12/23 08:55 Consult to Anesthesiology Routine Comment: Consulting Provider: Anesthesiologist Reason for consultation: Regional block for post operative pain control 07/12/23 16:27 Consult to Discharge Planning Routine Comment: Consult to Physical Therapy Evaluate & Treat Comment: Physician Instructions: post op JANET protocol 07/13/23 09:36 Consult to [employer] - Crystalizer Routine Comment: home health PT 07/13/23 13:03 Consult to Occupational Therapy Evaluate & Treat Comment: Physician Instructions: Evaluate and treat 07/13/23 17:30 Consult to Physical Therapy Evaluate & Treat Comment: FWW for home use Physician Instructions: Evaluate and Treat Discharge provider: Libia Mullins PA-C Summary Hospital Course Discharge Diagnosis: Left displaced femoral neck fracture s/p left total hip arthroplasty Hospital Course: Mr Mak's hospital course was remarkable for episodes of hypotension and orthostatic hypotension, which were successfully treated w/ fluid boluses. On POD# 2 he was feeling well and wanted to go home. He still needed more work w/ inpt PT prior to d/c, but he was eating and voiding without difficulty and his pain was well-controlled with oral medication. Exam Vital Signs (past 8 hours): - 07/13/23 23:44 07/14/23 05:34 Temperature 98.2 F 97.7 F Pulse Rate 86 90 Respiratory Rate 20 20 Blood Pressure 127/53 L 136/60 Pulse Oximetry 95 96 Oxygen Flow Rate 0 0 Oxygen Delivery Method Room Air Oxygen Flow Rate 0 Narrative Exam Narrative: 4/5 strength in hip flexors, quadriceps, hamstrings; 5/5 DF, PF, EHL on left. Sensation to light touch intact throughout LLE. Calf soft, compressible, nontender and without palpable cords or masses. Aquacel dressing CDI. Objective Labs 07/13/23 04:04 07/12/23 04:30 PFSH Social History household members: spouse Smoking Status: Never smoker alcohol intake: current Discharge Assessment & Plan Assessment and Plan Assessment: Left displaced femoral neck fracture s/p left total hip arthroplasty Plan of Treatment: Discharge home today pending adequate progress w/ PT. Multimodal pain control, ASA BID for VTE prophylaxis, f/u in office in 2 weeks as scheduled. Discharge Plan Discharge Plan Patient Disposition: Home Discharge orders & Medications Prescriptions: New oxycodone 5 mg Tablet 5 mg PO Q4-6H PRN (Reason: Pain, Moderate (4-6)) Qty: 40 0RF docusate sodium 100 mg Capsule 100 mg PO BID PRN (Reason: constipation) Qty: 60 1RF aspirin 81 mg Tablet,Delayed Release (Dr/Ec) 81 mg PO BID Qty: 90 0RF acetaminophen 325 mg Tablet 650 mg PO Q6H PRN (Reason: Fever/Mild Pain (1-3)) Qty: 240 0RF Follow up/Referrals: Magdaleno Hinton MD [Primary Care Provider] - Benito Mabry MD [Physician] - As previously scheduled (Follow up w/ Dr Mabry on 07/25/2023 @ 10:00 am at [facility] office in [place].) Diet/Activity/Treatments Diet: Diet as Tolerated Activity: Weightbearing as tolerated to left leg. Cold/Heat Therapy: Ice to hip as needed for pain. Skin/Wound/Dressing Care Dressing: May shower. Leave dressing in place until follow up w/ ortho. No bathing or otherwise soaking incision. Call the office if the dressing becomes saturated. Visit Report/Discharge Packet Instructions: DI for Hip Replacement, DI for Prescription Opioid Use Stand Alone Forms: Patient Portal/API, Stroke Signs & Symptoms, Surgery Discharge Discharge Data Primary Care Provider: Magdaleno Hinton VTE Deep Vein Thrombosis/Pulmonary Embolism Present on Admission: No
[2023-07-14 07:00] VITALS: BP 131/41; BP 140/55; BP 149/45; PULSE 90; PULSE 92; PULSE 96
[2023-07-14] MEDS: DOCUSATE 100 MG CAPSULE PO (08:22)
[2023-07-14] MEDS: ASPIRIN EC 81 MG TABLET PO (08:22)
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
[2023-07-14] MEDS: HEPARIN 5,000 UNIT/ML VIAL 5000 UNIT SUBCUT (08:28)
--- NOTE | 2023-07-14 08:31 | PC.NURSE ---
Addendum entered by Macarena Hudson R.N. 07/14/23 10:31: Patient had a shower and he was just given 1 oxycodone for discomfort and he will also be doing some p.t. at 1100. Original Note: Patients s.o. has high anxiety with patient and his needs for the past two days. She is pleasant and tries to be helpful. Patient has been discharged pending how he does with physical therapy, she stated I dont want him to go home until he has a bowel movement here. This RN encouraged patient s.o. that we will be giving him bowel medications and joann lax, which was just given. Then shewas worrying about his blood pressure and is it going to be controlled well enough before he goes home to [place]. His blood pressure runs soft and he did become orthostatic with pressures when ambulating and getting up the first couple of times. He was given a bolus last evening and his pressures have been 140s/50s and consistantly similiar. Encouraged patients s.o. that we will let him go if everything is going well with physical therapy and his needs. Just checked on patient and he is eating breakfast. He denies pain or discomfort at this time and his aquacel dressing is cdi.
--- NOTE | 2023-07-14 11:00 | PT.IPTN ---
Current Diagnoses Fracture of unspecified part of neck of unspecified femur, initial encounter for closed fracture (07/10/23) Presence of unspecified artificial hip joint (07/10/23) Surgery Performed Operation Date: 07/12/23 13:00 Actual Procedures p Total Hip Arthroplasty/Anterior Approach(Left) - Benito Mabry MD Physical Therapy Treatment Note M2 PT-IP Current Condition Start: 07/13/23 13:10 Freq: NEEDED Status: Discharge Protocol: Document 07/13/23 13:10 AB (Rec: 07/13/23 13:34 AB [id number]) Physical Therapy Current Condition Current Condition Evaluation Date 07/13/23 Treatment Diagnosis s/p left anterior JANET Onset Date 07/12/23 M3 PT-IP Subjective Start: 07/13/23 13:10 Freq: NEEDED Status: Discharge Protocol: Document 07/14/23 11:00 AB(2) (Rec: 07/14/23 14:26 AB(2) [id number]) Subjective Physical Therapy Visit Type Type Treatment Note Visit Start Time 11:00 Visit Stop Time 12:07 Total Visit Minutes 67 Number of ENGINEERING OPERATIONS LEADER Visits 0 Physical Therapy Visit Comments Patient Comments agreeable to do PT Therapy Pain Assessment Pain Present Pain Present Denied Pain M4 PT-IP Mobility and Gait Start: 07/13/23 13:10 Freq: NEEDED Status: Discharge Protocol: Document 07/14/23 11:00 AB(2) (Rec: 07/14/23 14:26 AB(2) [id number]) PT-Bed Mobility Assessment Supine to Sit Supine to Sit Moderate Assistance,1 Person Assistance PT-Transfer Assessment Sit to and From Stand Sit to and from Stand Contact Guard Assistance, Minimal Assistance,1 Person Assistance,Use of Upper Extremities Equipment Transfer Assistive Device Gait Belt,Front Wheeled Walker Orthotic/Prosthetic Devices or Brace: No Transfers Transfer Destination Chair Transfer Technique ambulated Transfer Ability Level of Assist Contact Guard Assistance,1 Person Assistance,Use of Upper Extremities Comments Mobility Comments pt supine in bed. spouse in room for caregiver training. reviewed L anterior hip precautions with pt and pt recalled 1/2. educated again on hip precautions. BP in supine: 127/68. pt completed supine to sit mod A and max cues for techniques. pt and spouse stated that pt will be sleeping on his recliner when he goes home and also declined bed mobility training. educated spouse on how to use safety belt and how to assist pt. spouse was able to put safety belt on and assisted pt with sit to stand min A and max cues. PT instructed pt to sit back down and pt tends to plop back and cued again for techniques. educated pt for sit <>stand techniques. educated spouse on how to cue and assist pt. pt completed sit to stand again with spouse assisting. pt ambulated to the chair using FWW CGA. PT reminded pt on hip precautions and also educated spouse to cue pt if needed for safety and for pt's hip precautions. spouse stated that they are going into the front of the house to enter with 1 step to the deck and 7 steps L rail to get in. pt and spouse agreed with stair climbing training. spouse assisted pt with sit to stand from the chair and was able to cue pt. spouse assisted pt with ambulation using FWW ~ 125 ft CGA. stair climbing training. PT demonstrated and educated pt and spouse on how to complete stairs. spouse assisted pt with up/down platform step min A and cues. also able to assist pt with up/down steps with pt holding on to L rail with B hands and pt doing stair sideways. pt completed with min A and cues. assisted pt back to his room. spouse assisted pt from w/c to chair using FWW CGA. positioned pt on the chair. call light and table placed within reach. Gait Assessment Gait Gait Assistance Required: Contact Guard Assist Distance (Feet) 125 Able to Maintain Weight Bearing Status Yes During Gait Assistive Devices Assistive Device Gait Belt,Front Wheeled Walker Orthotic/Prosthetic Devices or Brace: No Gait Deviations General Gait Pattern Antalgic,Decreased Stride Length Factors Limiting Gait Function Factors Limiting Gait Function Decreased Activity Tolerance, Decreased Strength,Difficulty Following Directions,Limited Range of Motion,Poor Balance, Poor Safety Awareness Stair Climbing Assessment Evaluation Level of Assist On Stairs Minimal Assistance Devices Stair Climbing Assistive Devices Left Railing Technique/Endurance Stair Climbing Direction Ascend and Descend Stair Climbing Technique Step to Step Number of Steps Climbed 3 Stair Climbing Set # Repetitions (reps) 1 M5 PT-IP Objective Assessments Start: 07/13/23 13:10 Freq: NEEDED Status: Discharge Protocol: Document 07/13/23 13:10 AB (Rec: 07/13/23 13:34 AB [id number]) Orientation Orientation/Cognition Level of Alertness Alert Orientation Name,Age,Birthday,Month,Date, Year,Day of Week,Place, Situation Language Function Ability No Deficits Noted Safety Awareness Understands Safety Issues Memory Description No Deficits Noted Gross Range of Motion Upper Extremity ROM Assessment Within Functional Limits Lower Extremity ROM Assessment Left Impaired Strength Upper Extremity Strength Assessment Within Functional Limits Lower Extremity Strength Assessment Left Impaired M6 PT-IP Treatment Start: 07/13/23 13:10 Freq: NEEDED Status: Discharge Protocol: Document 07/14/23 11:00 AB(2) (Rec: 07/14/23 14:26 AB(2) [id number]) Physical Therapy Treatment Education Education Provided Precautions,Weight Bearing Status,Safety M7 PT-IP Assessment and Plan Start: 07/13/23 13:10 Freq: NEEDED Status: Discharge Protocol: Document 07/14/23 11:00 AB(2) (Rec: 07/14/23 14:26 AB(2) [id number]) PT Summary Assessment and Plan Potential Rehabilitation Potential Fair Summary Impairments Pain,ROM,Strength,Balance, Coordination,Sensation,Tone, Cognition,Bed Mobility, Transfers,Gait,Activity Tolerance Assessment Summary Caregiver training completed and spouse was able to safely assist pt with mobility. pt plans to go home today. Pt will need HHPT. Goals Bed Mobility Goal Independent Transfer Goal Independent,Front Wheeled Walker Gait Goal Standby Assistance,Front Wheel Walker Gait Distance 100 Other Goals Pt to ambulate 100ft independently with LRAD to show improving ability to perform functional mobility. up/down 1 step without rails + 7 steps L rail ascending SBA Days to Meet Goals 5 Frequency of Treatment Frequency Of Treatment Twice a Day Treatment Plan Physical Therapy Treatment Plan Bed Mobility Training,Transfer Training,Gait Training, Therapeutic Exercise,Balance Retraining,Post Op Education, Discharge Planning,Hot or Cold Pack,Neuromuscular Re-ed, Coordination Retraining,Manual Therapy Precautions Anterior Hip Precautions No Hip Extension,No Hip External Rotation Weight Bearing Status Weight Bearing Status Weight Bear as Tolerated Allowed Weight Bearing Amount (enter % LLE WBAT or #) (%) Recommendations To Nursing Amount of Assist Needed 1 Person Assist Discharge Recommendations PT Discharge Recommendations Home with 08/05 Assist Available,Home Health Transportation Needs at Discharge Private Vehicle
[2023-07-14 12:00] VITALS: BP 123/53; PULSE 77; RESP 18; TEMP 36.5; O2SAT 96
--- NOTE | 2023-07-14 12:45 | OT.IP.TRT ---
Current Diagnoses Fracture of unspecified part of neck of unspecified femur, initial encounter for closed fracture (07/10/23) Presence of unspecified artificial hip joint (07/10/23) Surgery Performed Operation Date: 07/12/23 13:00 Actual Procedures p Total Hip Arthroplasty/Anterior Approach(Left) - Benito Mabry MD Occupational Therapy Treatment Note M2 OT-IP Current Condition Start: 07/13/23 18:24 Freq: Status: Active Protocol: Document 07/13/23 17:20 [facility] (Rec: 07/13/23 18:43 [facility] [id number]) Occupational Therapy Current Condition Current Condition Evaluation Date 07/13/23 Treatment Diagnosis S/P L JANET Post Operative Precautions Anterior Hip Precautions No Hip Extension,No Hip External Rotation M3 OT- IP Subjective and Pain Start: 07/13/23 18:24 Freq: Status: Active Protocol: Document 07/14/23 12:49 [facility] (Rec: 07/14/23 13:15 [facility] [id number]) OT- Subjective Occupational Therapy Visit Type Type Treatment Note Visit Start Time 12:37 Visit Stop Time 12:45 Total Visit Minutes 8 Occupational Therapy Visit Comments Patient Comments Pt getting dressed when OT came to see the pt. Pt's in the room. Patient/Caregiver Goals To go home. OT Pain Assessment Pain When Pain Assessed At Rest Pain Present Pain Present Denied Pain M4 OT- IP ADL's Start: 07/13/23 18:24 Freq: Status: Active Protocol: Document 07/14/23 12:49 [facility] (Rec: 07/14/23 13:15 [facility] [id number]) OT ADL-Dressing General Eval Lower Body Dressing Ability Maximum Assistance Comments OT Dressing Comments Pt needing assist to jose clothing over his feet and up ove his hips. Pt educated best to either focus on his balance or assist with clothing. In addition best to hold the FWW with one hand and then use of the other hand to pull up his clothing. Pt assist to put his slipper on. Educated best to jose his LLE first and take out last. OT ADL-Toileting Comments OT Toileting Comments Pt states have a BSC. OT ADL-Bathing Comments OT Bathing Comments Pt able to do showering with nursing. M5 OT- IP IADL's Start: 07/13/23 18:24 Freq: Status: Active Protocol: Document 07/13/23 17:20 [facility] (Rec: 07/13/23 18:43 [facility] [id number]) OT-Instrumental Activities of Daily Living Deficits IADL Deficits Identified Deficits Home Safety Awareness Awareness of Need for Assistance at Home Good Awareness Ability to Problem Solve Emergency Able to Problem Solve Situations Medication Management Medication Management No Deficits Identified Meal Preparation Meal Preparation Caregiver Provides Assist Conditioning Machine Operator Conditioning Machine Operator Caregiver Provides Assist M6 OT- IP Functional Cognition Start: 07/13/23 18:24 Freq: Status: Active Protocol: Document 07/13/23 17:20 [facility] (Rec: 07/13/23 18:43 [facility] [id number]) Cognitive Factors Limiting Selfcare Function Cognitive Ability Level of Alertness Alert Patient Orientation Name,Place,Situation Attention Span Ability Capable of Focused Attention, Capable of Sustained Attention Memory Description No Deficits Noted Safety Awareness No Deficits Noted Cognitive Comments Cognitive Assessment Comments Pt able to follow commands for ADL and mobility needs. OT- Vision and Hearing OT- Hearing Assessment OT- Hearing Assessment WFL OT- Vision Assessment Visual Acuity Glasses For Reading Visual Attentiveness WFL Occular Pursuits WFL M7 OT- IP Mobility and Balance Start: 07/13/23 18:24 Freq: Status: Active Protocol: Document 07/14/23 12:49 [facility] (Rec: 07/14/23 13:15 [facility] [id number]) OT-Transfer Assessment Sit to and From Stand Sit to and from Stand Minimal Assistance Comments Mobility Comments TRE to stand to the FWW , pt tends to lean on his heels and educated to be sure that he is putting weight over his feet to be sure his balance is okay. OT- Balance Assessment Sitting Balance and Reactions Static Sitting Balance Ability Good Dynamic Sitting Balance Ability Good Standing Balance and Reactions Static Standing Balance Ability Fair M8 OT- IP Objective Assessments Start: 07/13/23 18:24 Freq: Status: Active Protocol: Document 07/13/23 17:20 [facility] (Rec: 07/13/23 18:43 [facility] [id number]) OT Gross Range of Motion Upper Extremity Range of Motion Assessment Within Functional Limits OT Strength Upper Extremity Strength Assessment Within Functional Limits M9 OT- IP Assessment and Plan Start: 07/13/23 18:24 Freq: Status: Active Protocol: Document 07/14/23 12:49 [facility] (Rec: 07/14/23 13:15 [facility] [id number]) OT Summary Assessment and Plan Potential Rehabilitation Potential Excellent Analytic Complexity at Evaluation Moderate Summary OT Impairments Pain,Strength,Balance, Functional Mobility,Grooming, Dressing,Toileting,Bathing, Toilet Transfers,Shower Transfers,Activity Tolerance Progress Towards Goals Progressing Toward Goals Assessment Summary Pt present and able to go over and finalize OT suggestions and equipment needs. Pt able to assist pt safely and looking to take pt home today. Goals Self-Feeding Goal Independent Grooming Goal Independent Dressing Goal Independent Toileting Goal Independent Bathing Goal Independent Toilet Transfer Goal Independent Shower Transfer Goal Independent Patient/Caregiver Education Goal Caregiver Independent Assisting Patient Days to Meet Goals 9 Frequency of Treatment Frequency Of Treatment Once a Day Discharge Recommendations OT Discharge Recommendations Home with 08/05 Assist Available,Home Health, Outpatient PT Transportation Needs at Discharge Private Vehicle
--- NOTE | 2023-07-14 14:39 | CM.DPNOTE ---
DC Note Patient cleared for discharge today. Patient and family would like HH services. [facility] is the only agency that services [facility]. Patient ans family agreeable. CRISTIAN Burns, kindly agreed to send this referral for HH RN/PT/OT. No further needs identified. Plan: Discharge home w/spouse via private auto and [facility] services JW
== END 2023-07-14 13:00 | disposition home or self-care (01) | DRG 522 ==
LOC: ED 16:31 → AC 17:14
PROVIDERS: Orthopaedic Surgery Adult Reconstructive Orthopaedic Surgery; Admitting Provider Hospitalist; Emergency Provider Emergency Medicine; PCP Family Medicine; Referring Provider Emergency Medicine; Visit Provider Hospitalist
PROC: 0SRB0J9 Replacement of Left Hip Joint with Synthetic Substitute, Cemented, Open Approach (ICD-10-PCS; CPT 27130; principal; 2023-07-12 13:00)
DX: S72.002A Fracture of unspecified part of neck of left femur, initial encounter for closed fracture (principal); E87.1 Hypo-osmolality and hyponatremia; I95.1 Orthostatic hypotension; W18.30XA Fall on same level, unspecified, initial encounter
CPT/HCPCS: 36415; 72192; 73502; 73552; 76000; 80048; 84132; 85014; 85018; 85025; 96374; 97116; 97161; 97166; 97530; 97535; 99284; 99285; C1776; C1713; J0171; J0690; J1100; J1170; J1644; J2270; J2405; J2704; J3010